=== PATIENT | male | born 1975 | race Caucasian/White ===

== ENCOUNTER 2016-08-19 01:04 | Emergency (ER) | payer BC | END 2016-08-19 03:15 | disposition home or self-care (01) | LOC: D.ER 01:04 | DX: S01.81XA Laceration without foreign body of other part of head, initial encounter (principal); X58.XXXA Exposure to other specified factors, initial encounter; Y93.89 Activity, other specified; Y92.89 Other specified places as the place of occurrence of the external cause; F17.200 Nicotine dependence, unspecified, uncomplicated ==

== ENCOUNTER 2017-04-19 09:52 | Emergency (ER) | payer SELFPAY ==
[2017-04-19 11:56] LABS: UDS - AMPHET POSITIVE QUAL (NEGATIVE); UDS - BARB NEGATIVE QUAL (NEGATIVE); UDS - BENZO NEGATIVE QUAL (NEGATIVE); UDS - COCAINE NEGATIVE QUAL (NEGATIVE); UDS - METH NEGATIVE QUAL (NEGATIVE); UDS - OPIATE NEGATIVE QUAL (NEGATIVE); UDS - PCP NEGATIVE QUAL (NEGATIVE); UDS - THC NEGATIVE QUAL (NEGATIVE)
[2017-04-19 12:15] LABS: APPEARANCE CLEAR (CLEAR); COLOR YELLOW (YELLOW); GLUCOSE NEGATIVE (NEGATIVE); LEUKOCYTE ESTERASE NEGATIVE (NEGATIVE); NITRITE NEGATIVE (NEGATIVE); PROTEIN NEGATIVE (NEGATIVE)
[2017-04-19 12:16] LABS: BILIRUBIN NEGATIVE (NEGATIVE); KETONE NEGATIVE (NEGATIVE); UROBILINOGEN NORMAL (NORMAL)
[2017-04-19 13:50] LABS: HEMOGLOBIN 17.9 g/dL (13.5-17.5); LYMPHOCYTES 30.7 % (15-50); MCHC 35.1 g/dL (31.0-37.0); MCV 82.7 fL (80.0-100.0); MEAN PLATELET VOLUME 9.5 fL (7.4-10.4); NEUTROPHILS 53.7 % (40-80); PLATELET COUNT 114 10x3/uL (130-400); RBC 6.17 10x6/uL (4.20-6.10); RDW 12.7 % (11.5-14.5); WBC 6.3 10x3/uL (4.8-10.8)
== END 2017-04-19 13:59 | disposition home or self-care (01) ==
LOC: D.ER 09:52
PROVIDERS: Nurse Practitioner Family
DX: R51 Headache (principal); L02.211 Cutaneous abscess of abdominal wall

== ENCOUNTER 2017-04-21 01:22 | Emergency (ER) | payer MEDICAID ==
[2017-04-22] MEDS ORDERED: BACTRIM DS TABL1 TAB PO (14:01)
[2017-04-22 14:07] VITALS: BMI 33.0
== END 2017-04-21 02:53 | disposition home or self-care (01) ==
LOC: D.ER 01:22
DX: G43.909 Migraine, unspecified, not intractable, without status migrainosus (principal); F17.200 Nicotine dependence, unspecified, uncomplicated

== ENCOUNTER 2017-04-21 15:13 | Emergency (ER) | payer MEDICAID ==
[2017-04-21 16:35] LABS: UDS - AMPHET POSITIVE QUAL (NEGATIVE); UDS - BARB NEGATIVE QUAL (NEGATIVE); UDS - BENZO NEGATIVE QUAL (NEGATIVE); UDS - COCAINE NEGATIVE QUAL (NEGATIVE); UDS - METH NEGATIVE QUAL (NEGATIVE); UDS - OPIATE POSITIVE QUAL (NEGATIVE); UDS - PCP NEGATIVE QUAL (NEGATIVE); UDS - THC POSITIVE QUAL (NEGATIVE)
[2017-04-22] MEDS ORDERED: BACTRIM DS TABL1 TAB PO (14:01)
[2017-04-22 14:07] VITALS: BMI 33.0
== END 2017-04-21 17:47 | disposition home or self-care (01) ==
LOC: D.ER 15:13
PROVIDERS: Physician Assistant Medical
DX: R51 Headache (principal); F17.200 Nicotine dependence, unspecified, uncomplicated

== ENCOUNTER 2017-04-21 21:04 | Emergency (ER) | payer MEDICAID ==
[2017-04-21 22:36] LABS: BASOPHILS 0.8 % (0-2); EOSINOPHILS 0 % (0-7); HEMATOCRIT 47.8 % (42.0-54.0); HEMOGLOBIN 16.8 g/dL (13.5-17.5); IMMATURE GRANULOCYTES 0.3 % (0-5); MCH 29.7 pg (26.0-34.0); MCHC 35.1 g/dL (31.0-37.0); MCV 84.6 fL (80.0-100.0); MEAN PLATELET VOLUME 11.2 fL (7.4-10.4); MONOCYTES 10.5 % (2-11); NEUTROPHILS 60.4 % (40-80); RBC 5.65 10x6/uL (4.20-6.10); RDW 12.7 % (11.5-14.5); WBC 6.5 10x3/uL (4.8-10.8)
[2017-04-21 22:54] LABS: ALBUMIN 3.4 g/dL (3.4-5.0); ALKALINE PHOSPHATASE 195 U/L (46-116); ALT (SGPT) 240 U/L (10-68); CALC OSMOLALITY 271 mosm/kg (275-300); CHLORIDE - SERUM 96 mmol/L (98-107); GLUCOSE 181 mg/dL (74-106); POTASSIUM - SERUM 5.3 mmol/L (3.5-5.1); PROTEIN - SERUM 7.2 g/dL (6.4-8.2); SODIUM 132 mmol/L (136-145); UREA NITROGEN 17 mg/dL (7-18); eGFR NON AFRICAN AMERICAN 87 mL/min (90-120)
[2017-04-21 22:56] LABS: PLATELET COUNT 89 10x3/uL (130-400)
[2017-04-22] MEDS ORDERED: BACTRIM DS TABL1 TAB PO (14:01)
[2017-04-22 14:07] VITALS: BMI 33.0
[2017-04-24 11:14] LABS: HEPATITIS C ANTIBODY 9.6 (0.0-0.9)
== END 2017-04-21 23:43 | disposition home or self-care (01) ==
LOC: D.ER 21:04
PROVIDERS: Physician Assistant Medical
DX: G43.909 Migraine, unspecified, not intractable, without status migrainosus (principal)

== ENCOUNTER 2017-04-22 08:07 | Inpatient (IN) | payer MEDICAID ==
[~2017-04-22] VITALS: Ht 185.4 cm; Wt 113.6 kg
[2017-04-22] MEDS ORDERED: BACTRIM DS TABL1 TAB PO (14:01)
[2017-04-22 14:07] VITALS: BP 112/57; Ht 185.4 cm; Wt 113.6 kg
--- NOTE | 2017-04-22 14:36 | NUR ---
RECIEVED TO ROOM 2214 FROM ER VIA . LETICIA TO R FA. SMALL OPEN AREA NOTED TO LOWER ABDOMEN. STATES THAT THE WOUND WAS OPENED IN A CLINIC PREVIOUSLY. DROWSY. AWAKENS EASILY TO VERBAL STIMULI. DENIES ANY COMPLAINT OF PAIN AT THIS TIME.
--- NOTE | 2017-04-22 16:45 | NUR ---
OFF FLOOR IN WHEELCHAIR WITH FAMILY.
[2017-04-22 20:00] VITALS: BP 125/71
--- NOTE | 2017-04-23 00:33 | NUR ---
CYN ARELLANOSEISMIC SURVEY ASSISTANT INFORMED THAT PATIENT WANTS TO GO AMA
--- NOTE | 2017-04-23 00:56 | NUR ---
PATIENT HAD AN EMOTIONAL OUTBURT RELATED TO PAIN EXACEBATION FOR HIS HEAD ACHE. VERBALLY EXPRESSED SUICIDAL IDEATIONS WITH A PISTOL SHOT TO THE HEAD OR TAKING 20 PAIN PILLS TO STOP THE PAIN. HE STATED THAT HE WAS READY TO GO AMA, AND TO CALL HIM A TAXI. THE PATIENT CALLED DR KINGSTON DIRECTLY. 4MG MORPHINE IV GIVEN 15 MINUTES EARLY FOR HEADACHE AND TO DE-ESCALATE THE PATIENT'S AGITATION. DR KINGSTON CALLED THE FLOOR AND ADDED 650MG TYLENOL Q4HP PO AND A ONE TIME DOSE OF IMATREX WHEN NEEDED.
--- NOTE | 2017-04-23 02:24 | NUR ---
PATIENT RESTING WITH EYES CLOSED AND NO VISIBLE SIGNS OF DISTRESS. BED IN LOWEST POSITION AND CALL LIGHT WITHIN REACH.
--- NOTE | 2017-04-23 07:20 | NUR ---
PATIENT RECEIVED IN LEFT LATERAL POSITION RESTING QUIETLY WITH EYES CLOSED. RESPIRATIONS EVEN AND UNLABORED. SIDE RAILS UP X2. BED IN LOW POSITION. CALL LIGHT IN REACH.
[2017-04-23 08:07] LABS: EOSINOPHILS 0.1 % (0-7); HEMATOCRIT 44.6 % (42.0-54.0); HEMOGLOBIN 15.4 g/dL (13.5-17.5); IMMATURE GRANULOCYTES 0.4 % (0-5); LYMPHOCYTES 35.1 % (15-50); MCH 29.8 pg (26.0-34.0); MCHC 34.5 g/dL (31.0-37.0); MCV 86.3 fL (80.0-100.0); MEAN PLATELET VOLUME 10.7 fL (7.4-10.4); MONOCYTES 12.3 % (2-11); NEUTROPHILS 51.1 % (40-80); RBC 5.17 10x6/uL (4.20-6.10); RDW 12.7 % (11.5-14.5)
[2017-04-23 08:24] LABS: PLATELET COUNT 119 10x3/uL (130-400); WBC 13.6 10x3/uL (4.8-10.8)
[2017-04-23 08:45] LABS: ALBUMIN 2.9 g/dL (3.4-5.0); ALKALINE PHOSPHATASE 155 U/L (46-116); ALT (SGPT) 191 U/L (10-68); BILIRUBIN - TOTAL 0.33 mg/dL (0.2-1.3); CALCIUM 7.9 mg/dL (8.5-10.1); CARBON DIOXIDE 30.1 mmol/L (21.0-32.0); CHLORIDE - SERUM 99 mmol/L (98-107); CREATININE - SERUM 0.9 mg/dL (0.6-1.3); POTASSIUM - SERUM 4.8 mmol/L (3.5-5.1); PROTEIN - SERUM 6.6 g/dL (6.4-8.2); SODIUM 134 mmol/L (136-145); UREA NITROGEN 17 mg/dL (7-18); eGFR NON AFRICAN AMERICAN > 90 mL/min (90-120)
[2017-04-23 08:57] LABS: CALC OSMOLALITY 270 mosm/kg (275-300); GLUCOSE 125 mg/dL (74-106)
--- NOTE | 2017-04-23 09:13 | NUR ---
PATIENT IN RIGHT LATERAL POSITION RESTING QUIETLY. NO SIGNS OF DISTRESS NOTED. SCHEDULED MEDICATION ADMINISTERED WELL PRN MORPHINE FOR PAIN 01/20. BED IN LOW POSITION. CALL LIGHT IN REACH.
--- NOTE | 2017-04-23 11:00 | NUR ---
PATIENT ALERT IN BED. NO SIGNS OF DISTRESS NOTED. INFORMED PATIENT URINE SPECIMEN WAS NEEDED. CUP PROVIDED. STATES UNDERSTANDING. BED IN LOW POSITION. CALL LIGHT IN REACH.
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
--- NOTE | 2017-04-23 14:03 | NUR ---
ALERT IN BED. C/O PAIN 02/19 TO HEAD. MORPHINE ADMINISTERED PER PRN ORDER. IV TO RIGHT FOREARM PATENT. NO REDNESS OR INFLAMMATION NOTED. BED IN LOW POSITION. CALL LIGHT IN REACH.
--- NOTE | 2017-04-23 14:47 | NUR ---
Patient Name: TERRENCE ALEGRIA Admission Status: ER Accout number: [id number] Admission Date: 04-22-2017 : 1975 Admission Diagnosis: Attending: JULITA KINGSTON Current LOS: 1 Anticipated DC Date: Planned Disposition: Home Primary Insurance: MEDICAID [place] Discharge Planning Comments: CM met with patient to assess discharge planning needs. Patient states he lives independently by himself and his mother will be the one to drive him home at discharge. He denies any HH or medical equipment used. He states his home is safe to return too. There are no stairs or steps to enter in his home. CM will continue to follow and assist as needed. PCP:[facility] [address] [place] [address] Jayne (mother) [phone] Manager Industrial: Ambar Engle * Is the patient Alert and Oriented? Yes 0 * How many steps to enter\exit or inside your home? 0 0 * PCP TOPHER 0 * Pharm[facility] 0 * Preadmission Environment Home Alone 0 * ADLs Independent 0 * Equipment None 0 * List name and contact numbers for known caregivers / representatives who currently or will assist patient after discharge: JAYNE (MOTHER) [phone] 0 * Community resources currently utilized None 0 * Additional services required to return to the preadmission environment? No 0 * Can the patient safely return to the preadmission environment? Yes 0 * Has this patient been hospitalized within the prior 30 days at any hospital? No 0 Grand Total: 0
--- NOTE | 2017-04-23 15:05 | NUR ---
CARLOZ SHAW APN NOTIFIED OF PATIENT REFUSAL OF LAB STICKS
--- NOTE | 2017-04-23 16:15 | NUR ---
UP AMBULATING OFF UNIT WITH FRIEND. NO SIGNS OF DISTRESS NOTED.
[2017-04-23 20:00] VITALS: BP 139/82
--- NOTE | 2017-04-23 20:00 | NUR ---
ASSESSMENT PER FLOWSHEET. SALINE LOCK PATENT RT FOREARM. SITE CLEAR. UP AD JIMMIE IN ROOM. SR UP X2 CALL LIGHT WITHIN REACH.
--- NOTE | 2017-04-23 21:42 | NUR ---
C/O PAIN IN HEAD RATES PAIN LEVEL #6-8. TOO EARLY FOR MORPHINE. TYLENOL 650MG PO GIVEN FOR PAIN CONTROL.
--- NOTE | 2017-04-23 22:19 | NUR ---
C/O HEAD ACHE PAIN UNRELIEVED WITH TYLENOL. MORPHINE 4MG IVP GIVEN FOR PAIN CONTROL.
[2017-04-23 23:44] VITALS: BP 121/67
--- NOTE | 2017-04-24 | NUR ---
RESTING QUIETLY UA SPECIMEN WAS OBTAINED AND SENT TO LAB DEPT.
--- NOTE | 2017-04-24 02:53 | NUR ---
C/O PAIN IN BACK RATE PAIN LEVEL #10. MORPHINE 4MG IVP GIVEN FOR RELIEF.
--- NOTE | 2017-04-24 04:57 | NUR ---
C/O HEADACHE TYLENOL 650MG PO GIVEN FOR HEADACHE PAIN.
--- NOTE | 2017-04-24 05:15 | NUR ---
INFORMATION TECHN[employer]Y [employer] HERE TO DRAW AM LAB. PATIENT REFUSED LAB DRAW.
--- NOTE | 2017-04-24 06:17 | NUR ---
MEDS GIVEN PER MAR.
--- NOTE | 2017-04-24 07:15 | NUR ---
PATIENT RECEIVED TALKING ON PHONE, YELLING AND CURSING. BED IN LOW POSITION. CALL LIGHT IN REACH.
--- NOTE | 2017-04-24 08:30 | NUR ---
PATIENT IN RIGHT LATERAL POSITION RESTING QUIETLY. NO SIGNS OF DISTRESS NOTED. SCHEDULED MEDICATION ADMINISTERED. DENIES NEEDS. BED IN LOW POSITION. CALL LIGHT IN REACH.
[2017-04-24 09:33] VITALS: BP 127/81
--- NOTE | 2017-04-24 09:39 | NUR ---
PER CARRI MEADE PATIENT RAISING VOICE AND CURSING. WANTING TO BE DISCONNECTED FROM IV TO "GO OUTSIDE." STATES "I'M GOING TO START BREAKING THINGS IF I DON'T GET OUT OF HERE." IV TO RIGHT FOREARM SALINE LOCKED. PATIENT AMBULATED OFF UNIT WITHOUT ASSIST.
--- NOTE | 2017-04-24 10:15 | NUR ---
NAYAN RN AT BEDSIDE TO ATTEMPT TO RESITE IV. PER ESTEBAN SPICER PATIENT STATES "I HAVE TO GET OUT HERE AND GO HOME." EXPLAINED TO PATIENT HE WOULD BE LEAVING AGAINST MEDICAL ADVICE AND IF HE NEEDED MEDICAL ATTENTION AFTER LEAVING HE COULD RETURN TO ER. STATES UNDERSTANDING. AMA PAPER GIVEN.
--- NOTE | 2017-04-24 10:35 | NUR ---
IV TO RT. F/A NOT ABLE TO FLUSH. DCD CATH INTACT. NO REDNESS OR EDEMA AT SITE. PATIENT AAO TIMES 4. STATES "IM GOING OUTSIDE TO SMOKE." THIS NURSE INFORMED PATIENT LEAVING ROOM AND HOSPITAL IS CONSIDERED LEAVING AGAINST MEDICAL ADVISE. HE STATES HE UNDERSTANDS THIS BUT REFUSES TO SIGN AMA FORM.
--- NOTE | 2017-04-24 11:32 | NUR ---
spoke to pt regarding needing a midline iv access. pt volunteered that he uses iv drugs. per venancio martinez iv access nurse-pt does not have a peripheral to site iv. instructed pt that he cannot leave the floor or the building-asked for a nicotime patch.
--- NOTE | 2017-04-24 14:35 | NUR ---
PATIENT WALKING DOWN HALLWAY WITH GUESTS. STATES I'M OUT OF HERE. ESTEBAN SPICER ASKED PATIENT IF HE WOULD SIGN AMA FORM. PATIENT STATES I'M NOT SIGNING ANYTHING AND WALKED OFF UNIT.
--- NOTE | 2017-04-24 14:38 | NUR ---
PATIENT LEFT AMA
--- NOTE | 2017-04-24 14:43 | NUR ---
NOTIFIED BHAVNA FLEMING APN OF PATIENT LEAVING AMA.
[2017-04-26 12:15] LABS: F. TULARENSIS - IGG Negative (()); F. TULARENSIS - IGM Negative (())
[2017-04-27 14:21] LABS: HGE IGG TITER Negative (Neg:<1:64); HGE IGM TITER Negative (Neg:<1:20)
--- NOTE | 2017-04-29 13:01 | EC ---
PATIENT:TERRENCE ALEGRIA DATE OF SERVICE: 04/23/17 SEX: M MEDICAL RECORD: [id number] DATE OF : [birth year] LOCATION:[facility] AGE OF PATIENT: 41 ADMISSION DATE: 04/23/17 REFERRING PHYSICIAN: INTERPRETING PHYSICIAN: PASHA GALAVIZ MD ECHOCARDIOGRAM REPORT ECHO CHARGES 4 ECHO COMPLETE CLINICAL DIAGNOSIS: HIGH FEVER/IV DRUG USE ECHOCARDIOGRAPHIC MEASUREMENTS (adult normal given) AC root (d.<3.7cm) 3.9 cm LV Septum d (<1.2 cm> 1.4 cm Valve Excursion 2.3 cm LV Septum (systole) 2.2 cm Left Atria (s.<4.0cm> 3.7 cm LVPW d(<1.2cm) 1.6 cm RV (d.<2.3cm) 2.9 cm LVPW (sytole) 2.2 cm LV diastole(<5.6CM) 5.1 cm MV E-F(>70mm/sec) cm LV systole 3.0 cm LVOT Diameter 2.2 cm MV exc.(>10mm) cm Est.ejection fraction (50-75%) % Pericardial Effusion N DOPPLER: LVIT cm/sec A 67.0 cm/sec E 94.0 cm/sec LA cm/sec RVSP 40.0 mmHg LVOT 119 cm/sec AOP1/2T m/s Asc. Ao 151 cm/sec RVOT 73.0 cm/sec RA cm/sec PA 113 cm/sec AV Gradient Peak 9.1 mmHg AV Mean 4.8 mmHg AV Area 3.4 cm MV Gradient Peak 5.4 mmHg MV Mean 1.9 mmHg MV Area cm COMMENTS: Interlocking Pavement Installer: Halie OSBORNEOE Application Specialist: 4 Dr. Galaviz TAPE# PACS DATE OF SERVICE: 04/23/2017 PROCEDURE: Transthoracic echocardiogram. FINDINGS: 1. The left ventricle has a mild concentric left ventricular hypertrophy with normal LV systolic function, ejection fraction 65% and flow characteristics are normal. 2. The mitral valve appears to be normal in structure with trace mitral regurgitation. No evidence grossly of vegetation. ECHOCARDIOGRAM REPORT [id number] TERRENCE ALEGRIA 3. The aortic valve has normal trileaflet structure. No evidence of vegetation. 4. The tricuspid valve is not well visualized, grossly normal with trace tricuspid regurgitation. Pericardium is normal. The right ventricular systolic pressure appears to be mildly elevated at 35-40 mmHg. 5. Pulmonic valve is not well visualized, but is grossly normal. CONCLUSIONS: The patient has overall normal heart to mild hypertensive heart disease. No evidence of vegetation can be seen on the transthoracic study. If clinical evidence suggest that this patient may have endocarditis a transesophageal echocardiogram maybe useful. TRANSINT:[id number] Voice Confirmation ID: [id number] DOCUMENT ID: [id number] 04/27/2017 Edited to correct date of service, dm. PASHA GALAVIZ MD Manually Signed by PASHA GALAVIZ CC: [id number] DICTATION DATE: 04/24/17924 MANAGER WOUND: 04/24/17 1410 DIS IN 04/24/17 [facility] [address] [place] [address]
== END 2017-04-24 14:35 | disposition left against medical advice (07) | DRG 103 ==
LOC: D.ER 08:07 → D.MS 12:50 → OBSVTIME 13:18 → D.MS 04-23 15:05
PROVIDERS: Family Medicine; Family Medicine Adult Medicine; ADMIT Emergency Medicine
DX: R51 Headache (principal); R50.9 Fever, unspecified; R10.9 Unspecified abdominal pain; B19.20 Unspecified viral hepatitis C without hepatic coma; F17.200 Nicotine dependence, unspecified, uncomplicated; F15.90 Other stimulant use, unspecified, uncomplicated

== ENCOUNTER 2017-11-07 10:58 | Emergency (ER) | payer MEDICAID ==
[2017-04-22 14:07] VITALS: BMI 33.0
[~2017-11-07 10:58] MED LIST: BACTRIM DS TABL1 TAB PO
[2017-11-07 12:55] LABS: APPEARANCE HAZY (CLEAR); BACTERIA FEW /hpf (NONE SEEN); BILIRUBIN NEGATIVE (NEGATIVE); COLOR YELLOW (YELLOW); EPITHELIAL CELLS RARE /hpf (0-5); GLUCOSE NEGATIVE (NEGATIVE); KETONE NEGATIVE (NEGATIVE); MUCUS <1+ /lpf (NONE SEEN); NITRITE NEGATIVE (NEGATIVE); PROTEIN NEGATIVE (NEGATIVE); RED CELLS - URINE RARE /hpf (0-5); UROBILINOGEN NORMAL (NORMAL); WHITE CELLS - URINE 25-50 /hpf (0-5)
[2017-11-07 13:20] LABS: BASOPHILS 0.2 % (0-2); EOSINOPHILS 0.8 % (0-7); HEMATOCRIT 40.2 % (42.0-54.0); HEMOGLOBIN 13.7 g/dL (13.5-17.5); IMMATURE GRANULOCYTES 0.3 % (0-5); LYMPHOCYTES 9.1 % (15-50); MCH 29.4 pg (26.0-34.0); MCHC 34.1 g/dL (31.0-37.0); MCV 86.3 fL (80.0-100.0); MEAN PLATELET VOLUME 9.9 fL (7.4-10.4); MONOCYTES 9.1 % (2-11); NEUTROPHILS 80.5 % (40-80); PLATELET COUNT 266 10x3/uL (130-400); RBC 4.66 10x6/uL (4.20-6.10); RDW 12.1 % (11.5-14.5); WBC 16.9 10x3/uL (4.8-10.8)
[2017-11-07 13:27] LABS: ALBUMIN 3.6 g/dL (3.4-5.0); ALKALINE PHOSPHATASE 86 U/L (46-116); ALT (SGPT) 19 U/L (10-68); BILIRUBIN - TOTAL 0.47 mg/dL (0.2-1.3); CALC OSMOLALITY 273 mosm/kg (275-300); CALCIUM 8.1 mg/dL (8.5-10.1); CHLORIDE - SERUM 100 mmol/L (98-107); CREATININE - SERUM 1.1 mg/dL (0.6-1.3); GLUCOSE 113 mg/dL (74-106); POTASSIUM - SERUM 3.7 mmol/L (3.5-5.1); PROTEIN - SERUM 7.6 g/dL (6.4-8.2); SODIUM 136 mmol/L (136-145); UREA NITROGEN 14 mg/dL (7-18); eGFR NON AFRICAN AMERICAN 77 mL/min (90-120)
== END 2017-11-07 14:10 | disposition home or self-care (01) ==
LOC: D.ER 10:58
PROVIDERS: Emergency Medicine
DX: N45.1 Epididymitis (principal); N45.2 Orchitis

== ENCOUNTER → 2020-11-22 07:35 | Outpatient (CLI) | payer BC ==
[2019-09-27 22:39] VITALS: BMI 35.7
== END | disposition home or self-care (01) ==
LOC: D.NM 07:35
PROVIDERS: ATTEND Registered Nurse Emergency
DX: R10.9 Unspecified abdominal pain (principal)